=== PATIENT | female | born 1985 | race Caucasian/White ===

== ENCOUNTER 2017-12-30 12:59 | Emergency (ER) | payer BC, MEDICAID ==
--- OUTSIDE RECORDS SUMMARY | 2017-12-30 13:12 | XMS REPORT ---
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 Lisy Back MD Primary Care Physician Unavailable Payers Type Date Identification Numbers Payment Provider Subscriber Commercial Expires: Policy Number: [facility] Arlene Bernardo 2017 [id number] PayID: [id number] [address] [address] [place] [address] Medigap Part B Expires: 2017 Policy Number: Medicaid [place] Delicia Bernardo [id number] PayID: [id number] [address] [place] [address] Medigap Part B Policy Number: [id number] [facility] Arlene Bernardo PayID: [id number] [address] [address] [place] [address] Problems Date Description Provider Status Onset: 05/02/2017 Anaphylactic reaction due to Charles Akhtar MD Active unspecified food, sequela Onset: 05/02/2017 Allergy to other foods Charles Akhtar MD Active Onset: 05/04/2017 Personal history of anaphylaxis Priscilla Stone, RPA -C Active Family History Date Family Member(s) Problem(s) Comments General Environmental Allergies General Asthma Social History Type Date Description Comments Smoke-Free Home is smoke-free Pets 3 dogs Pets 1 cat one cat at boyfriend's house -- pt does notice increased symptoms there Cigarette Use Never Smoked Cigarettes Smoking Patient has never smoked Smoking No Second Hand Smoke Exposure Allergies, Adverse Reactions, Alerts Date Description Reaction Status Severity Comments 05/02/2017 Sulfa Antibiotics active 05/02/2017 Penicillins active Medications Medication Date Status Form Strength Qnty SIG Indications Ordering Provider Levocetirizine 05/04 Active Tablets 5mg 30tab Take one Z87.892 Christopher Dihydrochloride /2016 s tablet by Stu Akhtar MD mouth daily at bedtime Proair HFA 05/04 Active Aerosol 108(90Bas 8.500 Inhale 2 Z87.892 oph e) gm puffs Q4 Stu Akhtar MD mcg/Act hours as needed Epipen 2-Yaniv 05/02 Active Solution 0.3mg/0.3 2unit as T78.00xS Auto-Inje ML s directed Stu Akhtar MD ct Nuvaring Active Ring 0.12-0.01 Unknown /0000 5mg/24HR Zantac 150 05/22 Hx Tablets 150mg 60tab One opher Maximum Strength /2016 s tablet po Stu Akhtar MD - bid 09/21 Clarinex 05/04 Hx Tablets 5mg 30tab Take one Z87.892 oph s tablet by Stu Akhtar MD - mouth 12/14 daily in the morning. Prednisone 05/04 Hx Tablets 5mg 45tab 12 tabs Z87.892 s po Day 1 Stu Akhtar MD - and Day 05/22 2, then tabs po Day 3, 6 tabs po Day 4, 4 tabs po Day 5, 2 tabs po Day 6, 1 tab po Day 7 Synthroid Hx Tablets 88mcg Unknown /0000 - 12/14 Sertraline HCL Hx Tablets 100mg 1 by Unknown /0000 mouth - every day 09/21 Epipen 2-Yaniv Hx Solution 0.3mg/0.3 as Unknown /0000 Auto-Inje ML directed - ct 09/21 Xyzal Allergy Hx Tablets 5mg take 1 Unknown 24HR /0000 tablet (5 - mg) by 09/21 route once daily as needed Vital Signs Date Vital Result Comment 12/14/2017 BP Systolic 119 mmHg BP Diastolic 83 mmHg Height 66 inches 5'6" Weight 235.00 lb BMI (Body Mass Index) 37.9 kg/m2 Heart Rate 109 /min Respiratory Rate 20 /min Body Temperature 97.9 F O2 % BldC Oximetry 97 % 09/21/2017 BP Systolic 116 mmHg BP Diastolic 74 mmHg Height 66 inches 5'6" Weight 236.00 lb BMI (Body Mass Index) 38.1 kg/m2 Heart Rate 96 /min Respiratory Rate 10 /min Body Temperature 98.4 F O2 % BldC Oximetry 97 % 05/04/2017 BP Systolic 122 mmHg BP Diastolic 86 mmHg Height 66 inches 5'6" Weight 226.00 lb BMI (Body Mass Index) 36.5 kg/m2 Heart Rate 94 /min Respiratory Rate 9 /min Body Temperature 97.1 F O2 % BldC Oximetry 97 % 05/02/2017 BP Systolic 116 mmHg BP Diastolic 82 mmHg Height 66 inches 5'6" Weight 226.50 lb BMI (Body Mass Index) 36.6 kg/m2 Heart Rate 77 /min Respiratory Rate 10 /min Body Temperature 97.1 F O2 % BldC Oximetry 97 % Results Test Date Test Result H/L Range Note Order 05/02/2017 Epinephrine Injector Training <pending> Procedures Date CPT Code Description Status 05/02/2017 33735 Education/Training PT Self-Management Each 30Minutes Completed Indiv PT Encounters Type Date Location Provider CPT E/M Dx Office Visit 12/14/2017 3:00p Rick Stone, 24854 Z87.892 RPA-C Office Visit 09/21/2017 3:15p Rick Stone 60083 Z87.892 RPA-C Office Visit 05/22/2017 2:45p Rick Stone 06934 Z87.892 RPA-C Office Visit 05/04/2017 8:30a Rick Stone 78840 Z87.892 RPA-C Office Visit 05/02/2017 10:00[place] [address] T78.00xS Z91.018 Plan of Care Future Appointment(s):12/18/2018 3:30 pm - CAROL Jaramillo at [facility]/15/2018 - WYATT JaramilloCZ87.892 Personal history of anaphylaxisComments:No further episodes of anaphylaxis. Continue Xyzal as prescribed. Continue to carry EpiPen at all times.Follow up:1 year.
--- OUTSIDE RECORDS SUMMARY | 2017-12-30 13:12 | XMS REPORT ---
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 Lisy Back MD Primary Care Physician Unavailable Payers Type Date Identification Numbers Payment Provider Subscriber Commercial Expires: Policy Number: [facility] Arlene Bernardo 2017 [id number] PayID: [id number] [address] [address] [place] [address] Medigap Part B Expires: 2017 Policy Number: Medicaid [place] Delicia Bernardo [id number] PayID: [id number] [address] [place] [address] Medigap Part B Policy Number: [id number] [facility] Arlene Bernardo PayID: [id number] [address] [address] [place] [address] Problems Date Description Provider Status Onset: 05/02/2017 [...] Form Strength Qnty SIG Indications Ordering Provider Clarinex 05/04 Active Tablets 5mg 30tab Take one Z87.892 opher s tablet by Stu Akhtar MD mouth daily in the morning. Levocetirizine 05/04 Active Tablets 5mg 30tab Take one Z87.892 Christopher Dihydrochloride /2016 s tablet by Stu Akhtar MD mouth daily at bedtime Proair HFA 05/04 Active Aerosol 108(90Bas 8.500 Inhale 2 Z87.892 e) gm puffs Q4 Stu Akhtar MD mcg/Act hours as needed Epipen 2-Yaniv 05/02 Active Solution 0.3mg/0.3 2unit as T78.00xS Auto-Inje ML s directed Stu Akhtar MD ct Nuvaring Active Ring 0.12-0.01 Unknown /0000 5mg/24HR Zantac 150 05/22 Hx Tablets 150mg 60tab One Christopher Maximum Strength /2016 s tablet po Stu Akhtar MD - bid 09/21 Prednisone 05/04 Hx Tablets 5mg 45tab 12 [...] /0000 tablet (5 - mg) by 09/21 oral route once daily as needed Vital Signs [...] Procedures Date CPT Code Description Status 05/02/2017 73194 Education/Training PT Self-Management Each 30Minutes Completed Indiv PT Encounters Type Date Location Provider CPT E/M Dx Office Visit 09/21/2017 3:15p Rick Stone, 65227 Z87.892 RPA-C Office Visit 05/22/2017 2:45p Rick Stone, 67992 Z87.892 RPA-C Office Visit 05/04/2017 8:30a Rick Stone, 62975 Z87.892 RPA-C Office Visit 05/02/2017 10:00[place] [address] T78.00xS Z91.018 Plan of Care 09/21/2017 - Priscilla Stone, RPA-CZ87.892 Personal history of anaphylaxisComments:No further episodes of anaphylaxis. Continue Clarinex and Xyzal for now. If patient remains asymptomatic, will consider discontinuing Clarinex at 3 month follow-up. Patient has multiple EpiPen's and Anaphylactic Action Plan in place.Follow up:3 months.
[2017-12-30 13:40] VITALS: BP 148/84
--- NOTE | 2017-12-30 13:43 | UC ---
Respiratory Complaint HPI - HPI Summary HPI Summary: nonprod cough with nasal congestion and pressure. ears ache bilaterally. taking inhaler d/t slight sob with exertion and chronic cough. oral liquid intake good chills at times. - History of Current Complaint Chief Complaint: UCRespiratory Stated Complaint: COUGH, CONGESTION, HEADACHE Time Seen by Provider: 12/30/17 13:24 Hx Obtained From: Patient Hx Last Menstrual Period: NUVARING PLACED 12/07/17 Onset/Duration: Lasting Days Timing: Constant Severity Initially: Moderate Severity Currently: Moderate Pain Intensity: 7 Character: Cough: Nonproductive Alleviating Factors: Bronchodilator, OTC Meds Associated Signs And Symptoms: Positive: Dyspnea, Chills, Nasal Congestion, Sinus Discomfort - Risk Factors Cardiac Risk Factors: Negative Tuberculosis Risk Factors: Negative - Allergies/Home Medications Allergies/Adverse Reactions: Allergies Allergy/AdvReac Type Severity Reaction Status Date / Time gluten Allergy GI Upset Verified 12/30/17 13:44 levothyroxine Allergy GI Upset Verified 12/30/17 13:44 oxycodone Allergy Rash And Verified 12/30/17 13:44 Itching Penicillins Allergy Rash Verified 12/30/17 13:44 wheat Allergy Nausea Verified 12/30/17 13:44 CAREGEENAN Allergy GI Upset Uncoded 12/30/17 13:44 Home Medications: Home Medications Albuterol HFA INHALER* [Ventolin HFA Inhaler*] 1 puff BID PRN 12/30/17 [History Confirmed 12/30/17] EPINEPHrine SYR* [EPINEPHphrine SYR*] 1 inj ONCE 12/30/17 [History Confirmed ] Levocetirizine Dihydrochloride [Xyzal] 10 mg BEDTIME 12/30/17 [History Confirmed 12/30/17] Sertraline* [Zoloft*] 100 mg PO DAILY 12/30/17 [History Confirmed 12/30/17] PMH/Surg Hx/FS Hx/Imm Hx Previously Healthy: Yes Respiratory History: Asthma - Surgical History Surgical History: Yes Surgery Procedure, Year, and Place: Lymph node removal (LEFT LEG), RIGHT LEG VEIN SURGERY 2013; [facility] REMOVAL LEFT LEG - Social History Occupation: Employed Full-time Lives: With Family Alcohol Use: Rare Substance Use Type: None Smoking Status (MU): Never Smoked Tobacco - Immunization History Most Recent Influenza Vaccination: Jul 2014 Most Recent Tetanus Shot: 2015 Most Recent Pneumonia Vaccination: never Review of Systems Constitutional: Chills Skin: Negative Eyes: Negative ENT: Sore Throat, Ear Ache - gerry, Nasal Discharge, Sinus Congestion, Sinus Pain/ Tenderness Respiratory: Shortness Of Breath, Cough - nonprod Cardiovascular: Negative Gastrointestinal: Negative Genitourinary: Negative Motor: Negative Musculoskeletal: Negative Neurological: Negative Psychological: Negative Is Patient Immunocompromised?: No All Other Systems Reviewed And Are Negative: Yes Physical Exam Triage Information Reviewed: Yes Appearance: Ill-Appearing Vital Signs: Initial Vital Signs Temp 97.9 F 12/30/17 13:34 Pulse 84 12/30/17 13:34 Resp 18 12/30/17 13:34 BP 148/84 12/30/17 13:34 Pulse Ox 98 12/30/17 13:34 Vital Signs Reviewed: Yes ENT: Positive: Pharyngeal erythema, Nasal congestion, TM bulging - gerry, Sinus tenderness Respiratory Exam: Normal Cardiovascular Exam: Normal Neurological Exam: Normal Psychological Exam: Normal Skin Exam: Normal UC Diagnostic Evaluation - Laboratory O2 Sat by Pulse Oximetry: 98 Respiratory Course/Dx - Course Course Of Treatment: influenza swab done - results. increase fluid intake daily while on abx to prevent dehydration. take abx as directed - discussed use and common side effect of med. f/u prn - Differential Dx/Diagnosis Provider Diagnoses: sinusitis Discharge - Sign-Out/Discharge Documenting (check all that apply): Discharge - Discharge Plan Condition: Stable Disposition: HOME Prescriptions: Clarithromycin TAB* [Biaxin 500 MG TAB*] 500 mg PO BID 7 Days #14 tab Patient Education Materials: Sinusitis (ED) Referrals: Lisy Back MD [Primary Care Provider] - 1 Week - Billing Disposition and Condition Condition: STABLE Disposition: HOME
== END 2017-12-30 14:13 | disposition home or self-care (01) ==
LOC: UCCORT 12:59
DX: J32.9 Chronic sinusitis, unspecified (principal); Z88.0 Allergy status to penicillin; Z88.8 Allergy status to other drugs, medicaments and biological substances; Z91.018 Allergy to other foods
CPT/HCPCS: 87502; 99212; G0463

== ENCOUNTER 2018-02-20 15:22 | Emergency (ER) | payer BC ==
--- OUTSIDE RECORDS SUMMARY | 2018-02-20 15:47 | XMS REPORT ---
:1985 External Reference #:[id number] Author Organization [facility] Address [address] [place] [address] Phone [phone] Care Team Providers Name Role Phone Lisy Back M.D. 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 Primary Care Physician Unavailable Payers Type Date Identification Numbers Payment Provider Subscriber Commercial Policy Number: [id number] [employer] Delicia Bernardo PayID: [id number] [address] [address] [place] [address] Problems Date Description Provider Status Onset: 03/14/2017 Hypothyroidism Lisy Back M.D. Active Family History Date Family Member(s) Problem(s) Comments Father Hypertension Father Hyperlipidemia Mother Hypothyroidism Mother Hypertension Paternal Grandfather due to Stroke () Maternal Grandmother Anxiety Maternal Grandmother Hypertension Social History Type Date Description Comments Diet Healthy, Well Balanced Sleep Reports normal sleep activity Occupation Unemployed Cigarette Use Denies Tobacco Use ETOH Use Occasional Recreational Drug Use Denies Drug Use Currently Active Patient is currently sexually active STD's No STD History Allergies, Adverse Reactions, Alerts Date Description Reaction Status Severity Comments 11/06/2015 Penicillin rash active 11/06/2015 Percocet rash active 11/06/2015 Wheat active celiac 11/06/2015 Gluten active celiac 09/03/2016 Levofloxacin active rash Medications Medication Date Status Form Strength Qnty SIG Indications Ordering Provider Valium 01/31 Active Tablets 5mg 14tabs 1 tab twice R51 a day as britt Back M.D. Sertraline HCL 06/21 Active Tablets 50mg 90tabs 1 by mouth Pattie every day GEORGI Harris Epipen 2-Yaniv 03/14 Active Solution 0.3mg/0.3 2units use as Z87.892 Auto-Inje ML directed Wong ct MYolyD. Proair HFA 03/14 Active Aerosol 108(90Bas 1units 2 puffs Z87.892 e) every 4-6 h [place], mcg/Act as needed M.D. cough/wheez e Sertraline HCL 07/26 Active Tablets 100mg 90tabs 1 by mouth F32.9 every day GEORGI Yañez Herbs Active Unknown /0000 Magnesium Active Capsules 500mg once daily Unknown Nuvaring Active Ring 0.12-0.01 3units insert one 5mg/24HR ring Pari vaginally, [facility] retain x 3 weeks, then remove, allow withdrawal bleed, and reinsert new ring sun after menses Levothyroxine Active Tablets 88mcg 90tabs 1 by mouth Mar / every day Pari [facility] Levofloxacin 08/31 Hx Tablets 500mg 10tabs 1 by mouth R05 every day Pari, - for 10 days [facility] 09/03 Dulera 08/31 Hx Aerosol 200-5mcg/ sample 2 puff R0 Act twice a day Pari, - [facility] 11/06 Biaxin 08/31 Hx Tablets 500mg 20tabs 1 po bid with food x Pari, - 10d [facility] 11/06 Doxycycline 08/01 Hx Capsules 100mg 20caps 1 by mouth Taar [facility] twice a day Beulah, - [facility] 08/11 Azithromycin 05/02 Hx Tablets 250mg 12tabs take 2 J01. tablets by Pari, - mouth x 3d [facility] 07/31 then take tablet daily for next 6 days Biaxin 12/28 Hx Tablets 500mg 28tabs 1 by mouth J01.90 twice a day Kimberly, - x 14 days [facility] 05/02 Biaxin 11/06 Hx Tablets 500mg 28tabs 1 by mouth J01.90 Pattie twice a day Kimberly, - x 14 days [facility] 12/28 Sertraline HCL 11/06 Hx Tablets 50mg 90tabs 1 by mouth F32.9 every day Burak Back M.D. 07/26 Calcium Hx Tablets 1 po qd - 05/02 Vitamin D Hx Tablets 1 po qd - 01/31 Magnesium Hx Tablets 1 po qd - 05/02 Co Q-10 Hx Capsules 1 po qd - 05/02 Fish Oil Hx Capsules 1 by mouth every day - 05/02 F01-Apnfjz Hx Chewtabs 1mg qd - 01/31 Calcium Hx Chewtabs 500mg 1 po qd - 01/31 Vital Signs Date Vital Result Comment 01/31/2018 BP Systolic 120 mmHg BP Diastolic 86 mmHg Heart Rate 96 /min Body Temperature 98.6 F Respiratory Rate 18 /min Height 65.5 inches 5'5.50" Weight 230.00 lb BMI (Body Mass Index) 37.7 kg/m2 03/14/2017 BP Systolic 140 mmHg BP Diastolic 80 mmHg Heart Rate 106 /min Body Temperature 98.6 F Height 65.5 inches 5'5.50" Weight 223.00 lb BMI (Body Mass Index) 36.5 kg/m2 11/07/2016 BP Systolic 128 mmHg BP Diastolic 78 mmHg Heart Rate 96 /min Body Temperature 99.0 F Height 65.5 inches 5'5.50" Weight 222.38 lb BMI (Body Mass Index) 36.4 kg/m2 08/31/2016 BP Systolic 126 mmHg BP Diastolic 82 mmHg Heart Rate 80 /min Body Temperature 98.4 F Height 65.5 inches 5'5.50" Weight 221.00 lb BMI (Body Mass Index) 36.2 kg/m2 08/01/2016 BP Systolic 110 mmHg BP Diastolic 64 mmHg Heart Rate 78 /min Body Temperature 97.5 F Height 65.5 inches 5'5.50" Weight 224.25 lb BMI (Body Mass Index) 36.7 kg/m2 05/02/2016 BP Systolic 114 mmHg BP Diastolic 80 mmHg Heart Rate 90 /min Body Temperature 99.0 F Respiratory Rate 16 /min Height 65.5 inches 5'5.50" Weight 224.50 lb BMI (Body Mass Index) 36.8 kg/m2 12/29/2015 BP Systolic 138 mmHg BP Diastolic 76 mmHg Heart Rate 74 /min Body Temperature 98.1 F Respiratory Rate 12 /min O2 % BldC Oximetry 98 % Height 65.5 inches 5'5.50" Weight 232.25 lb BMI (Body Mass Index) 38.1 kg/m2 11/06/2015 BP Systolic 120 mmHg BP Diastolic 80 mmHg Heart Rate 100 /min Body Temperature 99.2 F Respiratory Rate 16 /min Height 65.5 inches 5'5.50" Weight 230.00 lb pt stated BMI (Body Mass Index) 37.7 kg/m2 Results Test Date Test Result H/L Range Note Rapid Influenza A & 12/30/2017 Influenza A Molecular NEGATIVE Negative 1 B Molecular Influenza B Molecular NEGATIVE Negative Laboratory test finding 03/14/2017 TSH 1.46 mIU/L 0.50-6.00 Free T4 0.88 ng/dL 0.75-1.54 Influenza A&B-fma 11/07/2016 Influenza A neg Influenza B neg Vaginitis Nuswab 08/31/2016 Atopobium vaginae Low - 0 Score 2 Bvab 2 Low - 0 Score 2 Megasphaera 1 Low - 0 Score 2, 3 Danelle albicans, Tisha Negative Negative 2 Danelle glabrata, Tisha Negative Negative 2, 4 Trich vag by Tisha Negative Negative 2 Laboratory test finding 12/29/2015 Quickstrep negative Negative Throat - Beta Strep Fma negative@48hrs 1 Recordak Operator: [id number] 2 1APTIMA 3 Calculate total score by adding the 3 individual bacterial vaginosis (BV) marker scores together. Total score is interpreted as follows: Total score 0-1: Indicates the absence of BV. Total score 2: Indeterminate for BV. Additional clinical data should be evaluated to establish a diagnosis. Total score 3-6: Indicates the presence of BV. This test was developed and its performance characteristics determined by [facility]. It has not been cleared or approved by the Food and Drug Administration. The FDA has determined that such clearance or approval is not necessary. 4 This test was developed and its performance characteristics determined by [facility]. It has not been cleared or approved by the Food and Drug Administration. The FDA has determined that such clearance or approval is not necessary. Procedures Date CPT Code Description Status 12/29/2015 60587 Pulse Oximetry Completed Encounters Type Date Location Provider CPT E/M Dx Office Visit 03/14/2017 1:20p Main Office Lisy Back M.D. 72801 Z87.892 E03.9 R03.0 Office Visit 11/07/2016 4:15p [facility] Tara Riojas, [place]-C 50016 J06.9 Office Visit 08/31/2016 3:45p Main Office Mar Yañez [facility] 35310 R05 B37.3 F32.9 Office Visit 08/01/2016 2:00p [facility] Tara Riojas np-C 72286 J01.90 Office Visit 05/02/2016 3:15p Main Office Mar Yañez [facility] 20189 J01.90 Office Visit 12/29/2015 4:15p Main Office Pattie Hudsonbhart, [facility] 57788 J01.90 R09.81 J02.9 Office Visit 11/06/2015 4:15p [facility] Office Pattie Harris [facility] 00957 F32.9 J01.90 R50.9 Plan of Care 01/31/2018 - Lisy Back M.D.R42 Dizziness and giddinessNew Labs:CCS-Comp Metabolic (a) FemalCBC Electronic (a)Lyme, Western Blot, CSFComments: Reviewed warning signs and symptoms. Reasons to return to office or proceed to emergency room discussed including but not limited to no improvement or worsening of symptoms. Advised to call the office for any questions or concerns. Patient verbalized understanding.Follow up:apvwejjdP01.9 Hypothyroidism, unspecifiedNew Labs:TSH ([facility])Free T4 ([facility]) Comments:check labs , off medication for several pmcokoU31 CoughComments: possible [id number] HeadacheNew Medication:Valium 5 mgComments:trial of ibuprofen and acetaminophen ; use valium for muscle spasm Reviewed adverse side effects of medication. Advised to call the office if experiencing symptoms. Patient verbalized understanding.AllComments:~B_~U_Medication Management~b_~u_ Patient Understands medications she's taking? Yes No Are there Barriers to Adherence? Yes No Has the patient been asked about herbal supplements and therapies, and OTC meds? Yes No
--- NOTE | 2018-02-20 16:03 | UC ---
Complaint Female HPI - HPI Summary HPI Summary: pt states may be . states has had some nausea for 2 weeks. uses BC ring and removes monthly followed by a normal period. on the 6th,only spotted for a day rather than her usual period. past few days has noted breast tenderness. had some cramping but none now and no pain. no risk/concern for pelvic infection. no dysuria. would like a prenanacy test - History Of Current Complaint Chief Complaint: UCGeneralIllness Stated Complaint: PERSONAL Time Seen by Provider: 02/20/18 15:51 Hx Obtained From: Patient Hx Last Menstrual Period: 02/04/18 Onset/Duration: Gradual Onset Timing: Constant Pain Intensity: 0 Aggravating Factor(s): Nothing Alleviating Factor(s): Nothing Associated Signs And Symptoms: Negative: Fever, Vaginal Bleeding/Discharge, Vaginal Discharge, Genital Swelling, Genital Blisters - Allergies/Home Medications Allergies/Adverse Reactions: Allergies Allergy/AdvReac Type Severity Reaction Status Date / Time gluten Allergy GI Upset Verified 02/20/18 15:53 levothyroxine Allergy GI Upset Verified 02/20/18 15:53 oxycodone Allergy Rash And Verified 02/20/18 15:53 Itching Penicillins Allergy Rash Verified 02/20/18 15:53 wheat Allergy Nausea Verified 02/20/18 15:53 CAREGEENAN Allergy GI Upset Uncoded 02/20/18 15:53 PMH/Surg Hx/FS Hx/Imm Hx - Additional Past Medical History Additional PMH: allergies, anxiety, melanoma - Surgical History Surgical History: Yes Surgery Procedure, Year, and Place: Lymph node removal (LEFT LEG), RIGHT LEG VEIN SURGERY 2013; MELANOMA REMOVAL LEFT LEG. C6-C7 neck sugery 2012 - Family History Known Family History: Positive: None - Social History Occupation: Employed Full-time Lives: With Family Alcohol Use: Occasionally Substance Use Type: None Smoking Status (MU): Never Smoked Tobacco - Immunization History Most Recent Influenza Vaccination: Jul 2014 Most Recent Tetanus Shot: 2014 Most Recent Pneumonia Vaccination: never Vaccination Up to Date: Yes Review of Systems Gastrointestinal: Nausea Genitourinary: Abnormal Bleeding - spotted on 02/04/18 rather than normal period Is Patient Immunocompromised?: No All Other Systems Reviewed And Are Negative: Yes Physical Exam Triage Information Reviewed: Yes Appearance: Well-Appearing Vital Signs: Initial Vital Signs Temp 97.7 F 02/20/18 15:47 Pulse 93 02/20/18 15:47 Resp 18 02/20/18 15:47 BP 142/93 02/20/18 15:47 Pulse Ox 100 02/20/18 15:47 Eyes: Positive: Conjunctiva Clear ENT: Positive: Normal ENT inspection Neck: Positive: Supple, Nontender, No Lymphadenopathy Respiratory: Positive: Lungs clear, Normal breath sounds Cardiovascular: Positive: RRR, No Murmur Abdomen Description: Positive: Nontender, No Organomegaly, Soft Bowel Sounds: Positive: Present Pelvic Exam: Positive: Other - pt decline obstetrics gynecology physician exam Musculoskeletal: Positive: ROM Intact Neurological: Positive: Alert Psychological: Positive: Age Appropriate Behavior Skin Exam: Normal Diagnostics - Laboratory Diagnostic Studies Completed/Ordered: u/a=unremarkale, hcg=neg Complaint Female Dx - Course Course Of Treatment: non toxic, no acute abdomen. hcg=neg, u/a=unremarkable. pt advised should have a repeat test, possible blood by her pcp. also , she is to /fu immediatley for any changes or worsening. BP elevated at triage but repeat was 119/79. - Differential Dx/Diagnosis Provider Diagnoses: spotting. test=neg. Discharge - Sign-Out/Discharge Documenting (check all that apply): Discharge/Admit/Transfer - Discharge Plan Condition: Stable Disposition: HOME Referrals: Lisy Callejas MD [Primary Care Provider] - Additional Instructions: CALL DR CALLEJAS FOR A RECHECK / NEXT AVAILABLE APPOINTMENT AND POSSIBLE SERUM TEST SEEK EVAUATION IMMEDIATELY FOR ANY FEVER, PAIN OR WORSENING. - Billing Disposition and Condition Condition: STABLE Disposition: HOME
[2018-02-20 16:31] VITALS: BP 119/79
== END 2018-02-20 16:34 | disposition home or self-care (01) ==
LOC: UCCORT 15:22
DX: N92.0 Excessive and frequent menstruation with regular cycle (principal); Z88.5 Allergy status to narcotic agent; Z88.0 Allergy status to penicillin; Z88.8 Allergy status to other drugs, medicaments and biological substances; Z91.018 Allergy to other foods
CPT/HCPCS: 81003; 84702; 99212; G0463

== ENCOUNTER 2019-01-21 14:21 | Emergency (ER) | payer BC ==
[2019-01-21 15:42] VITALS: BP 148/84
--- NOTE | 2019-01-21 15:52 | UC ---
UC General HPI - HPI Summary HPI Summary: PT STATES "I THINK I HAVE A UTI". SHE DESCRIBES THIS "BLADDER SPASMS AFTER URINATION" AND "FREQUENT URINATION" WHICH BEGAN YESTERDAY. SHE IS 26 WEEKS . SHE DENIES ANY VAGINAL DISCHARGE OR BLEEDING. SHE DENIES ANY ABDOMINAL PAIN AND THE BABY IS MOVING PER USUAL. SHE HAS NO FEVER OR FLANK PAIN. SHE IS DRINKING PLENTY OF FLUIDS. I QUESTIONED HER ABOUT THE BP FROM TRIAGE AND HER BASELINE BP. PT STATES HER BP HAS BEEN NORMAL. SHE HAS LYMPHEDEMA IN LLE AND ONLY SLIGHT SWELLING IN RLE. - History of Current Complaint Chief Complaint: UCGU Stated Complaint: URINARY (26 WKS PREG) Time Seen by Provider: 01/21/19 15:36 Hx Obtained From: Patient Hx Last Menstrual Period: 02/04/18 Pain Intensity: 6 Associated Signs & Symptoms: Negative: Abdominal Pain, Fever - Allergy/Home Medications Allergies/Adverse Reactions: Allergies Allergy/AdvReac Type Severity Reaction Status Date / Time gluten Allergy GI Upset Verified 02/20/18 15:53 levothyroxine Allergy GI Upset Verified 02/20/18 15:53 oxycodone Allergy Rash And Verified 02/20/18 15:53 Itching Penicillins Allergy Rash Verified 02/20/18 15:53 wheat Allergy Nausea Verified 02/20/18 15:53 CAREGEENAN Allergy GI Upset Uncoded 02/20/18 15:53 Home Medications: Home Medications Pnv No.95/Ferrous Fum/Folic AC [ and Iron] 1 tab PO DAILY 01/21/19 [ History Confirmed 01/21/19] PMH/Surg Hx/FS Hx/Imm Hx - Additional Past Medical History Additional PMH: LYMPHEDEMA LLE. 27 WEEKS . MELANOMA. Psychological History: Depression - Surgical History Surgical History: Yes Surgery Procedure, Year, and Place: Lymph node removal (LEFT LEG), RIGHT LEG VEIN SURGERY 2013; [facility] REMOVAL LEFT LEG. C6-C7 neck sugery 2012 - Family History Known Family History: Positive: None - Social History Alcohol Use: Occasionally Substance Use Type: None Smoking Status (MU): Never Smoked Tobacco - Immunization History Most Recent Influenza Vaccination: Jul 2014 Most Recent Tetanus Shot: 2014 Most Recent Pneumonia Vaccination: never Vaccination Up to Date: Yes Review of Systems All Other Systems Reviewed And Are Negative: Yes Gastrointestinal: Negative: Abdominal Pain, Vomiting, Diarrhea, Nausea Genitourinary: Positive: Frequency. Negative: Hematuria Physical Exam Triage Information Reviewed: Yes Appearance: Well-Appearing Vital Signs: Initial Vital Signs Temp 98.1 F 01/21/19 15:35 Pulse 97 01/21/19 15:35 Resp 16 01/21/19 15:35 BP 148/84 01/21/19 15:35 Pulse Ox 98 01/21/19 15:35 Vital Signs Reviewed: Yes Eyes: Positive: Conjunctiva Clear ENT: Positive: Pharynx normal. Negative: Nasal congestion Neck: Positive: Supple Respiratory: Positive: Lungs clear Cardiovascular: Positive: RRR Abdomen Description: Positive: Nontender, Soft, Other: - Gravid uterus. Negative: CVA Tenderness (R), CVA Tenderness (L), Guarding, Hepatomegaly, Splenomegaly Musculoskeletal: Positive: ROM Intact, Edema @ - LLE(pt notes chronic with no change) and trace RLE(pt notes unchanged with this ) Neurological: Positive: Alert Psychological: Positive: Age Appropriate Behavior Skin Exam: Normal Course/Dx - Course Course Of Treatment: REPEAT MANUAL BP R ARM 130/78. U/A=NO BLOOD, PROTEIN, LEUKOCYTES OR NITRITES. CULTURE PENDING. - Differential Dx - Multi-Symptom Differential Diagnoses: Other - NON TOXIC. NO ACUTE ABDOMEN. NO CONCERN FOR PYELONEPHRITIS. REPEAT BP IMPROVED AND NO PROTEIN IN URINE PLUS LEG EDEMA HAS BEEN UNCHANGE WITH THIS THUS NO CONCERN FOR PRE-ECLAMPSIA. THE U/A IS UNREMARKABLE; HOWEVER, I AM GOING TO SEND A CULTURE AND START TX FOR A POSSIBLE UTI. - Diagnoses Provider Diagnosis: Bladder spasms, Urinary frequency Discharge - Sign-Out/Discharge Documenting (check all that apply): Patient Departure All imaging exams completed and their final reports reviewed: No Studies - Discharge Plan Condition: Stable Disposition: HOME Prescriptions: Nitrofurantoin Monohyd/M-Cryst [Macrobid 100 mg Capsule] 100 mg PO BID 5 Days # 10 cap Patient Education Materials: Urinary Tract Infection in Women (ED) Referrals: Bin MELO,Pb Mccall [Medical Doctor] - 1 Day Additional Instructions: CALL YOUR OB IN AM TO ADVISE OF SYMPTOMS AND TREATMENT. - Billing Disposition and Condition Condition: STABLE Disposition: Home
--- NOTE | 2019-01-23 07:08 | UC ---
- Progress Note Progress Note: Pt 26 weeks final urine culture- no growth please call pt for check Should f/u with [facility] megan 01/23/19 Course/Dx - Diagnoses Provider Diagnoses: Bladder spasms, Urinary frequency Discharge - Sign-Out/Discharge Documenting (check all that apply): Post-Discharge Follow Up All imaging exams completed and their final reports reviewed: No Studies - Discharge Plan Condition: Stable Disposition: HOME Prescriptions: Nitrofurantoin Monohyd/M-Cryst [Macrobid 100 mg Capsule] 100 mg PO BID 5 Days # 10 cap Patient Education Materials: Urinary Tract Infection in Women (ED) Referrals: Bin MELO,Pb Mccall [Medical Doctor] - 1 Day Additional Instructions: CALL YOUR OB IN AM TO ADVISE OF SYMPTOMS AND TREATMENT. - Billing Disposition and Condition Condition: STABLE Disposition: Home
== END 2019-01-21 16:21 | disposition home or self-care (01) ==
LOC: UCCORT 14:21
DX: O26.92 Pregnancy related conditions, unspecified, second trimester (principal); R35.0 Frequency of micturition; N32.89 Other specified disorders of bladder; F32.9 Major depressive disorder, single episode, unspecified; Z88.8 Allergy status to other drugs, medicaments and biological substances; Z88.5 Allergy status to narcotic agent; Z88.0 Allergy status to penicillin; Z85.820 Personal history of malignant melanoma of skin; Z79.899 Other long term (current) drug therapy; Z3A.26 26 weeks gestation of pregnancy
CPT/HCPCS: 81003; 87086; 99212; G0463

== ENCOUNTER 2019-02-20 15:30 | Emergency (ER) | payer BC ==
[2019-02-20 15:54] VITALS: BP 127/76
--- NOTE | 2019-02-20 16:01 | UC ---
UC General HPI - HPI Summary HPI Summary: sore throat since yesterday. - History of Current Complaint Chief Complaint: UCGeneralIllness Stated Complaint: THROAT COMPLAINT (30 WKS ) Time Seen by Provider: 02/20/19 15:47 Hx Obtained From: Patient Hx Last Menstrual Period: 02/04/18 Onset/Duration: Gradual Onset Timing: Constant Pain Intensity: 8 Associated Signs & Symptoms: Negative: Fever - Allergy/Home Medications Allergies/Adverse Reactions: Allergies Allergy/AdvReac Type Severity Reaction Status Date / Time gluten Allergy GI Upset Verified 02/20/19 15:54 levothyroxine Allergy GI Upset Verified 02/20/19 15:54 oxycodone Allergy Rash And Verified 02/20/19 15:54 Itching Penicillins Allergy Rash Verified 02/20/19 15:54 wheat Allergy Nausea Verified 02/20/19 15:54 CAREGEENAN Allergy GI Upset Uncoded 02/20/19 15:54 Home Medications: Home Medications Doxylamine/Pyridoxine(NF) [Diclegis (NF)] 2 tab PO BID 02/20/19 [History Confirmed 02/20/19] PMH/Surg Hx/FS Hx/Imm Hx - Additional Past Medical History Additional PMH: celiac disease, melanoma, lymphedema, currently Endocrine History: Thyroid Disease - Surgical History Surgical History: Yes Surgery Procedure, Year, and Place: Lymph node removal (LEFT LEG), RIGHT LEG VEIN SURGERY 2013; [facility] REMOVAL LEFT LEG. C6-C7 neck sugery 2012 - Family History Known Family History: Positive: None - Social History Occupation: Employed Full-time Alcohol Use: Occasionally Substance Use Type: None Smoking Status (MU): Never Smoked Tobacco - Immunization History Most Recent Influenza Vaccination: Jul 2014 Most Recent Tetanus Shot: 2014 Most Recent Pneumonia Vaccination: never Vaccination Up to Date: Yes Review of Systems All Other Systems Reviewed And Are Negative: No Constitutional: Negative: Fever, Chills ENT: Positive: Sore Throat. Negative: Sinus Congestion Respiratory: Negative: Shortness Of Breath, Cough Musculoskeletal: Positive: Edema - BLE's - chronic Physical Exam Triage Information Reviewed: Yes Appearance: Well-Appearing Vital Signs: Initial Vital Signs Temp 98.2 F 02/20/19 15:49 Pulse 106 02/20/19 15:49 Resp 16 02/20/19 15:49 BP 127/76 02/20/19 15:49 Pulse Ox 98 05/22/19 15:49 Vital Signs Reviewed: Yes Eyes: Positive: Conjunctiva Clear ENT: Positive: Pharyngeal erythema - mild, TMs normal. Negative: Nasal congestion, Nasal drainage Neck: Positive: Supple, Nontender, No Lymphadenopathy Respiratory: Positive: Lungs clear Cardiovascular: Positive: RRR Musculoskeletal: Positive: ROM Intact Neurological: Positive: Alert Psychological: Positive: Age Appropriate Behavior Skin Exam: Normal Diagnostics - Laboratory Lab Results: RAPID STREP=NEGATIVE Course/Dx - Diagnoses Provider Diagnosis: Pharyngitis Discharge - Sign-Out/Discharge Documenting (check all that apply): Patient Departure All imaging exams completed and their final reports reviewed: No Studies - Discharge Plan Condition: Stable Disposition: HOME Patient Education Materials: Pharyngitis (ED) Referrals: Lisy Back MD [Primary Care Provider] - Additional Instructions: follow up with primary care if not better in 5-7 days or sooner if worse. - Billing Disposition and Condition Condition: STABLE Disposition: Home
== END 2019-02-20 16:16 | disposition home or self-care (01) ==
LOC: UCCORT 15:30
DX: J02.9 Acute pharyngitis, unspecified (principal); Z88.8 Allergy status to other drugs, medicaments and biological substances; Z88.1 Allergy status to other antibiotic agents; Z88.0 Allergy status to penicillin; Z91.09 Other allergy status, other than to drugs and biological substances; Z91.018 Allergy to other foods
CPT/HCPCS: 87651; 99211; G0463

== ENCOUNTER 2019-06-24 11:26 | Emergency (ER) | payer BC ==
[2019-06-24 12:31] VITALS: BP 132/80
--- NOTE | 2019-06-24 13:24 | UC ---
Dizzy HPI HPI Summary: The patient is a 34-year-old female that woke up during the night with vertigo. She has a sense of fullness in her left ear. He denies any headache. She has had intermittent episodes of vertigo for about 10 years. He has been seen by a few ENTs for this problem. The most recent ENT she has seen his doctor Thalia. She has no ringing or roaring in her ear. She denies any URI problems. She has a remote history of a left leg melanoma. He has resultant left leg lymphedema as a result of ymph node dissection. - History Of Current Complaint Chief Complaint: UCDizziness Stated Complaint: DIZZINESS,LEFT EAR COMPLAINT Time Seen by Provider: 06/24/19 12:52 Hx Obtained From: Patient Hx Last Menstrual Period: 02/04/18 Onset/Duration: Sudden Onset, Gradual Onset Timing: Constant Severity Initially: Moderate Severity Currently: Mild Pain Intensity: 0 Pain Scale Used: 0-10 Numeric Character: Room Spinning Aggravating Factor(s): Position Change Alleviating Factor(s): Other - symptoms seem to wax and wane Associated Signs And Symptoms: Positive: Unsteady Gait. Negative: Nausea, Vomiting, Diaphoresis, Tinnitus, Chest Pain, SOB, Palpitations, Visual Changes, Decreased Oral Intake, Change In Medication, OTC Medications - Allergies/Home Medications Allergies/Adverse Reactions: Allergies Allergy/AdvReac Type Severity Reaction Status Date / Time gluten Allergy GI Upset Verified 02/20/19 15:54 levothyroxine Allergy GI Upset Verified 02/20/19 15:54 oxycodone Allergy Rash And Verified 02/20/19 15:54 Itching Penicillins Allergy Rash Verified 02/20/19 15:54 wheat Allergy Nausea Verified 02/20/19 15:54 CAREGEENAN Allergy GI Upset Uncoded 02/20/19 15:54 PMH/Surg Hx/FS Hx/Imm Hx Previously Healthy: Yes Respiratory History: Asthma Cancer History: Other Other Cancer History: melanoma - Surgical History Surgical History: Yes Surgery Procedure, Year, and Place: Lymph node removal (LEFT LEG), RIGHT LEG VEIN SURGERY 2013; MELANOMA REMOVAL LEFT LEG. C6-C7 neck sugery 2012 - Family History Known Family History: Positive: None Negative: Cardiac Disease, Hypertension, Diabetes - Social History Alcohol Use: None Substance Use Type: None Smoking Status (MU): Never Smoked Tobacco - Immunization History Most Recent Influenza Vaccination: Jul 2014 Most Recent Tetanus Shot: 2014 Most Recent Pneumonia Vaccination: never Vaccination Up to Date: Yes Review of Systems All Other Systems Reviewed And Are Negative: Yes Constitutional: Positive: Negative Skin: Positive: Negative Eyes: Positive: Negative ENT: Positive: Ear Ache - sl left ear fullness Respiratory: Positive: Negative Cardiovascular: Positive: Negative Gastrointestinal: Positive: Negative Genitourinary: Positive: Negative Motor: Positive: Negative Neurovascular: Positive: Negative Musculoskeletal: Positive: Negative Neurological: Positive: Negative Psychological: Positive: Negative Physical Exam Triage Information Reviewed: Yes Appearance: Well-Appearing, No Pain Distress, Well-Nourished Vital Signs: Initial Vital Signs Temp 97.9 F 06/24/19 12:25 Pulse 79 06/24/19 12:25 Resp 18 06/24/19 12:25 BP 132/80 06/24/19 12:25 Pulse Ox 100 06/24/19 12:25 Eye Exam: Normal Eyes: Positive: Conjunctiva Clear ENT: Positive: Hearing grossly normal. Negative: TMs normal - right OK, Left retracted Neck: Positive: Supple, Nontender, No Lymphadenopathy Respiratory: Positive: Lungs clear, Normal breath sounds, No respiratory distress Cardiovascular: Positive: RRR, No Murmur Musculoskeletal: Positive: ROM Intact, No Edema Neurological: Positive: Alert Psychological Exam: Normal Skin Exam: Normal Diagnostics - Radiology No standard instances Radiology Interpretation Completed By: Radiologist Summary of Radiographic Findings: CT brain NEG Dizzy Course/Dx - Differential Dx/Diagnosis Provider Diagnosis: Vertigo, Left serous otitis media Discharge ED - Sign-Out/Discharge Documenting (check all that apply): Patient Departure All imaging exams completed and their final reports reviewed: No Studies - Discharge Plan Condition: Stable Disposition: HOME Patient Education Materials: Vertigo (ED) Referrals: Lisy Back MD [Primary Care Provider] - Additional Instructions: I suggest you follow up with your ENT recheck for new or worsening symptoms - Billing Disposition and Condition Condition: STABLE Disposition: Home
== END 2019-06-24 13:45 | disposition home or self-care (01) ==
LOC: UCCORT 11:26
DX: R42 Dizziness and giddiness (principal); H65.92 Unspecified nonsuppurative otitis media, left ear; Z85.820 Personal history of malignant melanoma of skin
CPT/HCPCS: 70450; 99211; G0463

== ENCOUNTER 2019-10-09 08:50 | Emergency (ER) | payer BC ==
[2019-10-09 09:08] VITALS: BP 127/85
--- NOTE | 2019-10-09 09:51 | UC ---
Respiratory Complaint HPI - HPI Summary HPI Summary: cough x 7 days cough is productive with yellow sputum worse with deep breathing, better with fluid, rest + nasal congestion , sinus pressure no fever, no chills, no sob - History of Current Complaint Chief Complaint: UCGeneralIllness Stated Complaint: COUGH,CONGESTION Time Seen by Provider: 10/09/19 09:00 Hx Obtained From: Patient Hx Last Menstrual Period: 09/20/19 ?: No Onset/Duration: Gradual Onset, Lasting Days - 7, Still Present Timing: Constant Severity Initially: Moderate Severity Currently: Moderate Pain Intensity: 0 Pain Scale Used: 0-10 Numeric Character: Cough: Nonproductive Aggravating Factors: Deep Breaths Alleviating Factors: Nothing Associated Signs And Symptoms: Positive: URI. Negative: Fever, Chills, Nasal Congestion - Allergies/Home Medications Allergies/Adverse Reactions: Allergies Allergy/AdvReac Type Severity Reaction Status Date / Time gluten Allergy GI Upset Verified 10/09/19 09:00 levothyroxine Allergy GI Upset Verified 10/09/19 09:00 oxycodone Allergy Rash And Verified 10/09/19 09:00 Itching Penicillins Allergy Rash Verified 10/09/19 09:00 wheat Allergy Nausea Verified 10/09/19 09:00 CAREGEENAN Allergy GI Upset Uncoded 10/09/19 09:00 Home Medications: Home Medications Ibuprofen TAB* [Advil TAB*] 800 mg PO ONCE 10/09/19 [History Confirmed 10/09/19] Pnv No.95/Ferrous Fum/Folic AC [ Multivitamin Tablet] 1 tab PO DAILY 05/21 [History Confirmed 10/09/19] guaiFENesin [Mucinex] 1 tab PO ONCE 10/09/19 [History Confirmed 10/09/19] PMH/Surg Hx/FS Hx/Imm Hx - Additional Past Medical History Additional PMH: anxiety depression lymphedema in L leg from cancer treatment - Surgical History Surgical History: Yes Surgery Procedure, Year, and Place: Lymph node removal (LEFT LEG),. BILATERAL LEG VEIN SURGERY 2013;. MELANOMA REMOVAL LEFT LEG. C6-C7 neck sugery 2012. appendectomy. 04/2019 - Family History Known Family History: Positive: None Negative: Cardiac Disease, Hypertension, Diabetes - Social History Alcohol Use: None Substance Use Type: None Smoking Status (MU): Never Smoked Tobacco - Immunization History Most Recent Influenza Vaccination: Jul 2014 Most Recent Tetanus Shot: 2014 Most Recent Pneumonia Vaccination: never Vaccination Up to Date: Yes Review of Systems All Other Systems Reviewed And Are Negative: Yes Is Patient Immunocompromised?: No Physical Exam Triage Information Reviewed: Yes Appearance: Well-Appearing, No Pain Distress, Well-Nourished Vital Signs: Initial Vital Signs Temp 97.5 F 10/09/19 09:02 Pulse 91 10/09/19 09:02 Resp 16 10/09/19 09:02 BP 127/85 10/09/19 09:02 Pulse Ox 97 10/09/19 09:02 Vital Signs Reviewed: Yes Eye Exam: Normal Eyes: Positive: Conjunctiva Clear Dental Exam: Normal Neck exam: Normal Neck: Positive: Supple, Nontender, No Lymphadenopathy Respiratory Exam: Normal Respiratory: Positive: Chest non-tender, Lungs clear, Normal breath sounds Cardiovascular: Positive: RRR, No Murmur, Pulses Normal Abdominal Exam: Normal Bowel Sounds: Positive: Present Musculoskeletal Exam: Normal Skin Exam: Normal Respiratory Course/Dx - Differential Dx/Diagnosis Provider Diagnosis: Bronchitis Discharge ED - Sign-Out/Discharge Documenting (check all that apply): Patient Departure All imaging exams completed and their final reports reviewed: No Studies - Discharge Plan Condition: Stable Disposition: HOME Prescriptions: Azithromycin TAB* [Zithromax TAB (Z-ZENON) 250 mg #6 tabs] 2 tab PO .TODAY, THEN 1 DAILY #1 zenon Patient Education Materials: Acute Bronchitis (ED) Referrals: Lisy Back MD [Primary Care Provider] - If Needed - Billing Disposition and Condition Condition: STABLE Disposition: Home
== END 2019-10-09 09:22 | disposition home or self-care (01) ==
LOC: UCCORT 08:50
DX: J40 Bronchitis, not specified as acute or chronic (principal); Z85.9 Personal history of malignant neoplasm, unspecified; Z91.018 Allergy to other foods; Z88.5 Allergy status to narcotic agent; Z88.8 Allergy status to other drugs, medicaments and biological substances; Z88.0 Allergy status to penicillin; Z91.02 Food additives allergy status
CPT/HCPCS: 99212; G0463

== ENCOUNTER 2020-01-18 08:24 | Emergency (ER) | payer BC, OTHER ==
[2020-01-18 09:35] VITALS: BP 123/76
--- NOTE | 2020-01-18 09:36 | UC ---
FLU HPI - HPI Summary HPI Summary: 34yo with onset of diarrhea yesterday, passing about 12 loose, watery, non- bloody stools yesterday. No associated abdominal pain, nausea, vomiting or fever. Drinking well and voiding regularly. Frontal headache began yesterday, along with mild sore throat and cough without wheeze, Took pepto yesterday with some decrease in stool passage. No concern of food borne illness. She has not used her albuterol or taken any meds to reduce fever. Has 8 mo infant at home, who is a little off and irritable with loose stools. Formula feeding. 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 - History of Current Complaint Stated Complaint: COVID TESTING ISO Time Seen by Provider: 01/18/20 09:06 Hx Obtained From: Patient Hx Last Menstrual Period: 01/05/20 Onset/Duration: Sudden Onset, Lasting Days - 2 Severity Currently: Moderate Severity Initially: Moderate Pain Intensity: 7 Associated Signs & Symptoms: Positive: Myalgia, Cough, Sore Throat, Headache, Diarrhea. Negative: Fever - Risk Factors Influenza Risk Factors: Negative - Allergy/Home Medications Allergies/Adverse Reactions: Allergies Allergy/AdvReac Type Severity Reaction Status Date / Time gluten Allergy GI Upset Verified 01/18/20 09:07 levothyroxine Allergy GI Upset Verified 01/18/20 09:07 oxycodone Allergy Rash And Verified 01/18/20 09:07 Itching Penicillins Allergy Rash Verified 01/18/20 09:07 wheat Allergy Nausea Verified 01/18/20 09:07 CAREGEENAN Allergy GI Upset Uncoded 01/18/20 09:07 Home Medications: Home Medications Albuterol HFA INHALER* [Ventolin HFA Inhaler*] 1 puff BID PRN 12/30/17 [History Confirmed 10/09/19] EPINEPHrine SYR 0.1MG/ML* [EPINEPHphrine SYR 0.1MG/ML*] 1 inj IM ONCE 12/30/17 [ History Confirmed 10/09/19] Sertraline* [Zoloft*] 200 mg PO DAILY 12/30/17 [History Confirmed 10/09/19] Ibuprofen TAB* [Advil TAB*] 800 mg PO ONCE 10/09/19 [History Confirmed 10/09/19] Pnv No.95/Ferrous Fum/Folic AC [ Multivitamin Tablet] 1 tab PO DAILY 05/21 [History Confirmed 10/09/19] PMH/Surg Hx/FS Hx/Imm Hx Previously Healthy: Yes - overweight Respiratory History: Asthma Psychological History: Anxiety, Depression - Surgical History Surgical History: Yes Surgery Procedure, Year, and Place: Lymph node removal (LEFT LEG),. BILATERAL LEG VEIN SURGERY 2013;. MELANOMA REMOVAL LEFT LEG. C6-C7 neck sugery 2012. appendectomy. 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 Negative: Abdominal Pain, Vomiting, Nausea Genitourinary: Positive: Negative Motor: Positive: Negative Neurovascular: Positive: Negative Musculoskeletal: Positive: Negative Neurological/Mental Status: Positive: Headache - frontal Psychological: Positive: Negative - mood has been well controlled with use of sertraline. Is Patient Immunocompromised?: No Physical Exam Triage Information Reviewed: Yes Appearance: Ill-Appearing - looks mildly unwell, Pain Distress - mild, Obese Eye Exam: Normal, Other - PABLO, no conjunctival injection ENT: Positive: Pharynx normal, TMs normal. Negative: Tonsillar swelling, Tonsillar exudate Neck: Positive: Supple, Nontender, No Lymphadenopathy Respiratory: Positive: Lungs clear, Normal breath sounds, No respiratory distress Cardiovascular: Positive: RRR, No Murmur Abdomen Description: Positive: Nontender, No Organomegaly, Soft Bowel Sounds: Positive: Present Musculoskeletal Exam: Normal Neurological Exam: Normal Psychological Exam: Normal - a little tearful Skin Exam: Normal Flu Course/Dx - Course Course Of Treatment: Discussed no findings to suggest bacterial illness. Differential is viral syndrome including CoVID 1i. COVID testing done, discussed isolation and care of infant son (CDC recommends healthy caregiver to look after child. In her case, this is not fully feasible. We discussed hand hygiene, masks and surface decontamination. - Differential Dx/Diagnosis Differential Diagnosis/HQI/PQRI: Bronchitis, Pneumonia, Upper Respiratory Infection, Other - viral syndrome Provider Diagnosis: Viral syndrome Discharge ED - Sign-Out/Discharge Documenting (check all that apply): Patient Departure All imaging exams completed and their final reports reviewed: No Studies - Discharge Plan Condition: Stable Disposition: HOME Patient Education Materials: Viral Syndrome (ED) Forms: COVID-19 Tested & Isolation Referrals: Lisy Back MD [Primary Care Provider] - Additional Instructions: You can use imodium to control diarrhea, and use acetaminophen as needed for control of headache. At this time, you have normal oxygen saturation and vital signs. Use albuterol as needed for wheezing. Please isolate yourself at home, and protect your son as best you can with hand cleansing, masking and surface decontamination. Your fiancee should check in with his workplace regarding the protocol which they have in place for possible COVID contact; there is some variability site to site. If you have worsening shortness of breath, please proceed to the emergency room. You will be notified of the results of the test as soon as available. - Billing Disposition and Condition Condition: STABLE Disposition: Home
== END 2020-01-18 09:56 | disposition home or self-care (01) ==
LOC: UCCORT 08:24
DX: B34.9 Viral infection, unspecified (principal); J45.909 Unspecified asthma, uncomplicated; F41.9 Anxiety disorder, unspecified; F32.9 Major depressive disorder, single episode, unspecified; Z79.899 Other long term (current) drug therapy; Z88.5 Allergy status to narcotic agent; Z88.0 Allergy status to penicillin; Z88.8 Allergy status to other drugs, medicaments and biological substances; Z91.018 Allergy to other foods
CPT/HCPCS: 87635; 99211; G0463